=== PATIENT | female | born 2000 | race Two or more races ===

== ENCOUNTER 2024-11-28 16:47 | Emergency (ER) | payer MEDICAID, OTHER ==
[~2024-11-28] VITALS: Ht 160 cm; Wt 53.8 kg
--- NOTE | 2024-11-28 17:42 | ED.PDOC ---
HPI (NEURO) HPI Comments 24y F who presents to the ED for chief complaint of dizziness. - pt states she has been having dizziness for the past 1x week - pt states the dizziness has been intermittent, with no associated exacerbating or relieving factors - pt states when she has been getting up after nap this week, she has been having episodes of dizziness and felt disoriented - pt states she has been having associated nausea with 2x episodes of vomiting this week intermittently - pt has noted stable vitals in the ED - pt is ax0x4 and no changes in gait, vision or speech are noted past medical history: denies Past surgical history: denies allergies: denies medications: control social history: denies tobacco use, denies ETOH use, endorses drug use (marijuana) [place] HPI: Poor Historian. REVIEW OF SYSTEMS: CONSTITUTIONAL: Denies acute: fever, diaphoresis, chills, generalized weakness. HEAD: Denies acute: headache, photophobia Eyes: Denies acute: Double vision, vision loss, eye pain, eye discharge. EARS: Denies acute: tinnitus, hearing loss, ear discharge, ear pain, THROAT: Denies acute: sore throat, swelling, difficulty swallowing , pain with swallowing, change in voice. NECK: Denies acute: neck pain, neck swelling, stiff neck. HEART: Denies acute : chest pain, palpitations, LUNGS: Denies acute: SOB, wheezing, cough, hemoptysis ABDOMEN: Denies acute: abdominal pain, , , diarrhea, melena , hematemesis, hematochezia SKIN: Denies acute: rash, redness, lesions, itchiness. EXTREMITIES: Denies acute: calf pain, numbness, tingling, weakness, denies pain in extremity. Denies acute: Low back pain. Neuro: Denies acute: focal neurological deficit, motor or sensory focal neurological deficit, tremors, seizure like activity, confusion, , change in mental status, loss of bowel or bladder function, cauda equina like symptoms. : Denies acute: dysuria, hematuria, flank pain, increase in urinary frequency. PSYCH: Denies acute: hallucination, suicidal ideation, homicidal ideation. FEMALE: Denies acute: abnormal vaginal bleeding, foul odor, unusual discharge. PHYSICAL EXAM: General: -----mild---acute distress, awake and alert. Head: normocephalic, atraumatic. Neck: supple, trachea is midline, no swelling. Throat: Normal phonation. Eyes:, no erythema, no purulent discharge, no proptosis, no icterus. Heart: regular rate, regular rhythm, no significant murmur appreciated. Lungs: no apparent respiratory distress, Able to speak in full sentences. No wheezing, no rhonchi, no crackles. No stridors Clear to auscultation bilaterally. Abdomen: non tender to palpation, non distended, soft, no guarding, no rebound, + bowel sounds. Neuro: Awake, Alert, oriented to name, self, situation, follows commands GCS=15. Speech is normal. Skin: no petechia, no purpura, no cyanosis, non-pale, not jaundice. Lower extremities: --no - Pitting edema no deformity, no focal swelling, no calf TTP. Makes eye contact. moves all four extremities. Face: no apparent facial droop. Ambulating in the ED independently. When asked to rotate her head fast, this reproduces the symptoms of nausea and vomiting and vertigo Stroke: finger to nose cerebellar testing is intact. No pronator drift. 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 No nuchal rigidity, Kernig's sign, Brudzinski's sign, no meningeal signs. ED COURSE: DISCLAIMER: This medical document was created using an electronic medical record system with voice recognition software and computerized dictation system. Although this d ocument has been carefully reviewed, there might still be some phonetic and typographical errors. Occasional wrong-word or "sound-alike" substitutions may have occurred due to the inherent limitations of voice recognition software. These areas are purely typographical due to imperfections of the software programs and do not reflect any compromise in the patient's medical care. Please read the chart carefully and recognize, using context, where these substitutions have occurred. Chief Complaint: Dizziness Time Seen by MD: 18:08 Primary Care Provider: NONE Reviewed Notes: Medications, Allergies Information Source: Patient Mode of Arrival: Ambulatory Was a procedure done? Was a procedure done?: No Differential Diagnosis (SZ) General Weakness: Anemia, CVA, Dehydration, Dysrhythmia, Electrolyte imbalance, Encephalopathy, Guillain-[place], Hypoglycemia, Hypotension, Hypovolemia, Labyrinthitis, Meniere's disease, Myasthenia gravis, Myocardial infarction, Pulmonary embolus, Renal failure, Repiratory failure, TIA, VBI, Vertigo: central, Vertigo: peripheral, Vestibular neuronitis X-Ray, Labs, Meds, VS Vital Signs Date Time Temp Pulse Resp B/P (MAP) Pulse Ox O2 Delivery O2 Flow Rate FiO2 11/28/24 19:59 67 11/28/24 19:41 98.1 64 17 130/63 (85) 100 98.1 11/28/24 19:41 68 17 100 Room Air 11/28/24 17:50 96 16 98 Room Air* 0 21 11/28/24 17:16 98.9 69 16 122/84 (97) 100 98.9 Lab Test 11/28/24 17:55 11/28/24 17:39 11/28/24 17:15 Range/Units Urine Color Yellow Yellow Urine Clarity Turbid H Clear Urine pH 6.0 5.0-9.0 Urine Specific [place] 1.035 1.001-1.035 Urine Protein 1+ H Negative Urine Ketones Trace Negative Urine Blood Negative Negative /uL Urine Nitrite Negative Negative Urine Bilirubin Negative Negative Urine Urobilinogen 3 H Negative mg/dL Urine Leukocyte Esterase Negative Negative /uL Urine RBC 3 0 - 4 /hpf Urine Microscopic WBC 2 0-5 /HPF Urine Squamous Epithelial Cells Few <5 /hpf Urine Bacteria Few H None Seen /hpf Urine Mucus Moderate None Seen Urine Glucose Normal Normal mg/dL White Blood Count 5.9 4.4-10.8 10^3/uL Red Blood Count 5.09 4.0-5.20 10^6/uL Hemoglobin 9.7 L 12.2-16.2 g/dL Hematocrit 31.8 L 36.0-46.0 % Mean Corpuscular Volume 62.5 L 80.0-100.0 fL Mean Corpuscular Hemoglobin 19.1 L 28.0-32.0 pg Mean Corpuscular Hemoglobin Concent 30.5 L 32.0-36.0 g/dL Red Cell Distribution Width 17.5 H 11.8-14.3 % Platelet Count 399 140-450 10^3/uL Mean Platelet Volume 7.6 6.9-10.8 fL Neutrophils (%) (Auto) 47.1 37.0-80.0 % Lymphocytes (%) (Auto) 41.1 10.0-50.0 % Monocytes (%) (Auto) 7.6 0.0-12.0 % Eosinophils (%) (Auto) 3.4 0.0-7.0 % Basophils (%) (Auto) 0.8 0.0-2.0 % Neutrophils # (Auto) 2.8 1.6-8.6 10 ^3/uL Lymphocytes # (Auto) 2.4 0.4-5.4 10 ^3/uL Monocytes # (Auto) 0.5 0-1.3 10 ^3/uL Eosinophils # (Auto) 0.2 0-0.8 10 ^3/uL Basophils # (Auto) 0 0-0.2 10 ^3/uL Nucleated Red Blood Cells 0.0 % Sodium Level 139 136-145 mmol/L Potassium Level 4.2 3.5-5.1 mmol/L Chloride Level 105 98-107 mmol/L Carbon Dioxide Level 24 20-31 mmol/L Anion Gap 10 5-15 Blood Urea Nitrogen 12 9-23 mg/dL Creatinine 0.69 0.550-1.02 mg/dL Glomerular Filtration Rate Calc 123 >90 mL/min BUN/Creatinine Ratio 17.4 10.0-20.0 Serum Glucose 84 74-106 mg/dL Lactic Acid Level 0.9 0.4-2.0 mmol/L Calcium Level 9.4 8.7-10.4 mg/dL Magnesium Level 2.1 1.6-2.6 mg/dL POC Glucose 85 70-106 mg/dl Time of 1ST Reevaluation: 19:57 Reevaluation 1ST: Resolved Patient Education/Counseling: Diagnosis, Treatment Family Education/Counseling: No Family Present Comments Patient presented with the above HPI.-dizzy/generalized weakness-----workup was initiated. patient was found with the above mentioned diagnosis. the following medications were ordered: please refer to order lists of meds and tests obtained by myself Dr. Rosas. Patient ED course and VS have been stabilized. Patient has been reassessed in the ED and remained in a stable condition. Pertinent incidental findings were discussed with the patient and/or family. Patient/family voices understanding and is agreeable with plan. Patient has been observed in the ED adequate length of time to insure improvement/stability. Escalation of care considered: Consideration of escalation to observation or admission Patient was DISCHARGED home in a stable condition. All the reports of any imaging studies that were ordered by myself were reviewed by myself. Departure 1 Departure Time of Disposition: 18:53 Impression: Primary Impression: Vertigo Additional Impression: Anemia Disposition: HOME / SELF CARE / HOMELESS Condition: Stable Additional Instructions: Additional instructions: You MUST follow-up with your primary care/family doctor in 1 to 2 days. If you are unable to see your primary care/family doctor, please return to our emergency room for re-assessment and re-evaluation in 1 to 2 days. Return to the emergency room here in our facility or to the nearest ER [facility] if your symptoms change or worsen. CONSULTATIONS: you MUST Follow-up for consultation as soon as possible with: --neurology and ENT doctor in 1-2 days. Please call for appointment. You MUST call the consultants office yourself to make an appointment. You may need to arrange that through your insurance and/or your primary/family doctor. If you are unable to see the men's custom hair piece consultant in 1 to 2 days, you must return to our emergency room (or any other ER of your choice) for re-assessment and re- evaluation. Adequate fluid hydration. Your hemoglobin is low today. Please take daily iron supplements. Repeat CBC in 48-72 hours. e-Prescriptions Ondansetron Odt 4MG Tab (ZOFRAN PO) 4 Mg Tb 4 MG PO Q8HPRN PRN for 3 Days, #9 TAB ODT TAB-DISSOLVE IN MOUTH, THEN SWALLOW Prov: DMITRIY ROSAS DO 11/28/24 Meclizine HCl (Meclizine 25) 25 Mg Tab 25 MG PO Q8HPRN PRN for 3 Days, #9 TAB Prov: DMITRIY ROSAS DO 11/28/24 Discharged With: Self Critical Care Note Critical Care Time?: No I personally scribed for DMITRIY ROSAS DO ([email or web address]) on 11/28/24 at 17:42. Electronically submitted by Nando Mueller ([email or web address]). I personally scribed for DMITRIY ROSAS DO ([email or web address]) on 11/28/24 at 18:08. Electronically submitted by Nando Mueller ([email or web address]). DMITRIY ROSAS DO Nov 28, 2024 17:42
[2024-11-28 17:50] VITALS: PULSE 96; RESP 16; O2SAT 98
[2024-11-28] MEDS: MECLIZINE HCL 25 MG TAB PO ONE (18:06)
[2024-11-28] MEDS: SODIUM CHLORIDE 0.9% 1,000 ML IV ONE (18:07)
[2024-11-28 18:27] LABS: Basophils # (auto) 0 10 ^3/uL (0-0.2); Eosinophils # (auto) 0.2 10 ^3/uL (0-0.8); Hemoglobin 9.7 g/dL (12.2-16.2); Monocytes # (auto) 0.5 10 ^3/uL (0-1.3); White Blood Cell 5.9 10^3/uL (4.4-10.8)
[2024-11-28 18:28] LABS: Basophils % (auto) 0.8 % (0.0-2.0); Eosinophils % (auto) 3.4 % (0.0-7.0); Hematocrit 31.8 % (36.0-46.0); Lymphocytes # (auto) 2.4 10 ^3/uL (0.4-5.4); Lymphocytes % (auto) 41.1 % (10.0-50.0); Mean Corpuscular Hemoglobin 19.1 pg (28.0-32.0); Mean Corpuscular Hgb Conc. 30.5 g/dL (32.0-36.0); Mean Corpuscular Volume 62.5 fL (80.0-100.0); Monocytes % (auto) 7.6 % (0.0-12.0); Neutrophils # (auto) 2.8 10 ^3/uL (1.6-8.6); Neutrophils % (auto) 47.1 % (37.0-80.0); Platelet Count (auto) 399 10^3/uL (140-450); Red Blood Cells 5.09 10^6/uL (4.0-5.20); Red Cell Distribution Width 17.5 % (11.8-14.3)
[2024-11-28 18:33] LABS: Chloride 105 mmol/L (98-107); Potassium 4.2 mmol/L (3.5-5.1); Sodium 139 mmol/L (136-145)
[2024-11-28 18:34] LABS: Anion Gap 10 (5-15); Calcium 9.4 mg/dL (8.7-10.4); Carbon Dioxide 24 mmol/L (20-31)
[2024-11-28 18:35] LABS: Urine Bacteria FEW /hpf (None Seen); Urine Blood Negative /uL (Negative); Urine Clarity Turbid (Clear); Urine Color Yellow (Yellow); Urine Mucus MODERATE (None Seen); Urine Protein, UAD 1+ (Negative); Urine Specific Gravity 1.035 (1.001-1.035); Urine Squamous Epithelial Cell FEW /hpf (<5); Urine Urobilinogen 3 mg/dL (Negative); Urine WBC 2 /HPF (0-5)
[2024-11-28 18:39] LABS: BUN/Creatinine Ratio 17.4 (10.0-20.0); Blood Urea Nitrogen 12 mg/dL (9-23); Glucose 84 mg/dL (74-106)
[2024-11-28 18:40] LABS: Magnesium 2.1 mg/dL (1.6-2.6)
[2024-11-28] MEDS: ONDANSETRON ODT 4 MG TAB PO ONE (19:11)
[2024-11-28 19:41] VITALS: BP 130/63; RESP 17; TEMP 98.1; O2SAT 100
[2024-11-28] MEDS ORDERED: MECL1TAB42 PO (19:58)
[2024-11-28] MEDS ORDERED: ZOFR4T PO (19:58)
[2024-11-28 19:59] VITALS: PULSE 67
--- NOTE | 2024-12-03 08:48 | ECG ---
[facility] Test Date: 2024-11-28 Test Time: 19:59:07 Pat Name: PARK BOOGIE Department: ER Room: Gender: F Chief Engineer Production: ER : 2000 Requested By: DMITRIY MALDONADO Order Number: [id number] Reading MD: Atif Riley Measurements Intervals [place] Rate: 67 P: 38 OH: 139 QRS: 38 QRSD: 90 T: 41 QT: 400 QTc: 423 Interpretive Statements Sinus rhythm Electronically Signed On 12-05-2024 8:57:33 PDT by Atif Riley Please click the below link to view image of tracing.
== END 2024-11-28 20:39 | disposition home or self-care (01) ==
LOC: ER 16:47
DX: R42 Dizziness and giddiness (principal); D64.9 Anemia, unspecified; F12.90 Cannabis use, unspecified, uncomplicated
CPT/HCPCS: 36415; 80048; 81001; 82947; 83605; 83735; 85025; 93005; 96360; 99284; J7030; J8597; Q0162; 82962